=== PATIENT | female | born 1985 | race Caucasian/White ===

== ENCOUNTER 2017-02-03 01:34 | Emergency (ER) | payer OTHER ==
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
--- NOTE | 2017-02-03 10:08 | XRay Report ---
ROUTINE CHEST, TWO VIEWS: HISTORY: Difficulty in breathing. The trachea, heart, mediastinal contour, lung johansen and bony thorax are unremarkable. IMPRESSION: Unremarkable chest x-ray.
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
[2017-02-03] MEDS ORDERED: TYLENOL PO ONE (19:21)
[2017-02-03] MEDS ORDERED: MOTRIN PO ONE (19:21)
[2017-02-03] MEDS ORDERED: BOOSTRIX IM ONE (19:27)
[2017-02-03] MEDS ORDERED: TRIPLE ANTIBIOTIC TP ONE (19:27)
--- NOTE | 2017-02-03 19:43 | XRay Report ---
FINAL REPORT PROCEDURE: XR FOREARM LT TECHNIQUE: LEFT forearm radiographs, AP and lateral views. CPT 29725 HISTORY: mid forearm contusion COMPARISON: No prior studies are available for comparison. FINDINGS: Fracture (s) and/or Dislocation(s): None . Joint space(s): Normal . Soft tissues: Normal . Bone mineralization: Normal . Foreign bodies: None . IMPRESSION: Normal Examination
[2017-02-03 22:58] VITALS: BP 110/72
== END 2017-02-03 19:53 | disposition home or self-care (01) ==
LOC: ED 01:34
DX: S16.1XXA Strain of muscle, fascia and tendon at neck level, initial encounter (principal); S50.812A Abrasion of left forearm, initial encounter; M54.5 Low back pain; V49.49XA Driver injured in collision with other motor vehicles in traffic accident, initial encounter; W22.11XA Striking against or struck by driver side automobile airbag, initial encounter; Y93.89 Activity, other specified; Y92.89 Other specified places as the place of occurrence of the external cause; Y99.8 Other external cause status
CPT/HCPCS: 70450; 71020; 72125; 90471; 90715; A6250